=== PATIENT | female | born 1965 | race Caucasian/White ===

== ENCOUNTER 2023-02-28 07:51 | Emergency (ER) | payer OTHER ==
[2023-02-28 08:04] VITALS: BMI 17.9
[2023-02-28] MEDS ORDERED: guaiFENesin/D-METHORPHAN HB 10 ML UNIT-DOSE CUPS PO ONE (08:38)
[2023-02-28] MEDS ORDERED: ACETAMINOPHEN 500 MG TABLET (FP) PO ONE (08:38)
[2023-02-28] MEDS ORDERED: ONDANSETRON 4 MG TABLET PO ONE ×2 (08:38→09:00)
[2023-02-28] MEDS ORDERED: guaiFENesin/D-METHORPHAN HB 10 ML UNIT-DOSE CUPS ONE (08:46)
[2023-02-28] MEDS ORDERED: ONDANSETRON *ODT* 4 MG TABLET ONE (08:46)
[2023-02-28] MEDS ORDERED: ACETAMINOPHEN 325 MG TABLET (FP) ONE (08:47)
[2023-02-28] MEDS ORDERED: ALBUTEROL SO4 HFA INHALER IH ONE ×2 (08:49→09:03)
[2023-02-28 10:04] VITALS: BP 125/65; PULSE 79; RESP 19; TEMP 98.5
== END 2023-02-28 10:07 | disposition home or self-care (01) ==
LOC: JER 07:51
PROC: 3E0F7GC Introduction of Other Therapeutic Substance into Respiratory Tract, Via Natural or Artificial Opening (ICD-10-PCS; principal; 2023-02-28)
DX: R05.1 Acute cough (principal); R50.9 Fever, unspecified; R09.81 Nasal congestion; R11.0 Nausea; R07.0 Pain in throat; J40 Bronchitis, not specified as acute or chronic; Z20.822 Contact with and (suspected) exposure to COVID-19
CPT/HCPCS: 0241U-QW; 71046-TC-FY; 87070; 87651; 94640; 99284-25

== ENCOUNTER 2023-05-03 17:04 | Emergency (ER) | payer OTHER ==
[2023-05-03 17:09] VITALS: BP 138/72; PULSE 88; RESP 18; TEMP 98.8; BMI 24.1
[2023-05-03 17:58] LABS: EPI CELLS 5 /uL (0-25.1); HYALINE CASTS 0 /uL (0-3.1); URINE APPEARANCE CLEAR; URINE BACTERIA 7 /uL (0-1359); URINE BILIRUBIN NEGATIVE (NEGATIVE); URINE COLOR YELLOW; URINE GLUCOSE (UA) NEGATIVE (NEGATIVE); URINE KETONE NEGATIVE (NEGATIVE); URINE LEUK ESTERASE 1+ (NEGATIVE); URINE NITRITE NEGATIVE (NEGATIVE); URINE PROTEIN NEGATIVE (NEGATIVE); URINE RBC 135 /uL (0-23.9); URINE UROBILINOGEN 0.2 mg/dL (0.2-1.0); URINE WBC 34 /uL (0-25.8)
[2023-05-03] MEDS ORDERED: DOXYCYCLINE HYCLATE 100 MG CAPSULE PO ONE ×2 (19:01→19:31)
[2023-05-03] MEDS ORDERED: LIDOCAINE HCL/PF 1% SDV 5ML VIAL ONE (19:31)
== END 2023-05-03 20:37 | disposition home or self-care (01) ==
LOC: JERFT 17:04 → JER 17:04 → JERFT 20:37
DX: R30.0 Dysuria (principal); R10.2 Pelvic and perineal pain; N89.8 Other specified noninflammatory disorders of vagina; N76.89 Other specified inflammation of vagina and vulva
CPT/HCPCS: 36415; 81003; 87070; 87086; 87205; 87491; 87591; 99284-25